=== PATIENT | female | born 2000 | race Caucasian/White ===

== ENCOUNTER 2024-07-07 14:54 | Emergency (ER) | payer OTHER, SELFPAY ==
[2024-07-07 14:57] VITALS: BP 137/98; PULSE 107; TEMP 37.1; O2SAT 98; BMI 54.9
--- NOTE | 2024-07-07 15:07 | CT_ITS ---
[address] [address] Patient Name: POORNIMA GUZMAN MRN: [id number] date: 2000 Sex: F Assigned Patient Location: ED.MAIN Current Patient Location: ED.MAIN Accession/Order Number: [id number] Exam Date: 07/07/2024 17:04 Report Date: 07/07/2024 18:56 At the request of: MIGUEL ANGEL MILIAN Procedure: CT abdomen pelvis w con EXAM: CT abdomen pelvis w con HISTORY: right lower quadrant abdominal pain COMPARISON: CT scan 09/27/2018. TECHNIQUE: CT abdomen pelvis with IV and water soluble oral contrast. IV 100 mL Omnipaque 300. 2 cups of oral contrast. Axial scans with reformatted coronal sagittal images. Individualized dose reduction used for this exam. FINDINGS: Lower chest: No acute process noted. ABDOMEN: Normal liver enhancement without focal lesion. Normal-appearing gallbladder, no biliary dilatation. Adrenal glands, pancreas, spleen unremarkable. No ascites or abdominal fluid. No or peritoneal adenopathy. Mildly prominent mesenteric lymph nodes right lower quadrant similar to previous. Normal enhancement aorta and branches and venous structures. Normal-appearing kidneys without evidence of hydronephrosis, no ureteral calculus. No bowel dilatation wall thickening or edema. Tiny appearing appendix right lower quadrant within normal limits. Moderate gas and stool throughout the colon. Moderate residual particulate matter in the stomach. Pelvis: No mass or adenopathy or free fluid. IUD in the central uterus. No adnexal pathology. Small amount of fluid in the bladder. Normal pelvic ureters. MUSCULOSKELETAL: No suspicious bone lesion. Small fat-containing periumbilical hernia. CT/CT abdomen pelvis w con IMPRESSION: 1. No Acute inflammatory process right flank right lower quadrant. Strictly unremarkable appearing gallbladder right kidney right colon and appendix. Right pelvic structures unremarkable. 2. There are several mildly prominent mesenteric lymph nodes right lower quadrant similar to previous. No increasing adenopathy. Electronically authenticated by: OZZY LUNDBERG Date: 07/07/2024 18:56
--- NOTE | 2024-07-07 15:08 | XR_ITS ---
The [address] [address] Patient Name: POORNIMA GUZMAN MRN: [id number] date: 2000 Sex: F Assigned Patient Location: ER Current Patient Location: ER Accession/Order Number: [id number] Exam Date: 07/07/2024 17:02 Report Date: 07/07/2024 18:59 At the request of: MIGUEL ANGEL MILIAN Procedure: XR chest 1V EXAM: XR chest 1V , 07/07/2024 HISTORY: abdominal pain COMPARISON: Previous x-ray from 2018. TECHNIQUE: Portable AP upright x-ray of the chest. FINDINGS: Low lung volumes. Cardiac silhouette within normal limits. No focal consolidation or pulmonary edema. Costophrenic angles appear clear. Limited evaluation due to positioning artifact. XR/XR chest 1V IMPRESSION: No acute cardiopulmonary findings. Electronically authenticated by: BRY SZYMANSKI Date: 07/07/2024 18:59
--- NOTE | 2024-07-07 15:09 | ED.GENADUL1 ---
HPI HPI - General Adult General Chief complaint: Abdominal Pain Stated complaint: ABDOMINAL PAIN Time Seen by Provider: 07/07/24 14:58 Source: patient Mode of arrival: walk-in Limitations: no limitations History of Present Illness HPI narrative: Patient is a 23-year-old female presents to the ER with concerns of right lower quadrant abdominal pain. Patient just ate prior to arrival states she was eating her breakfast. Nausea but no vomiting. Pain has been constant and daily progressively worsening over the past 3 to 4 days. She recently had her IUD changed and April. She is not sexually active. States she does have precancerous cells following a D&C with her IUD change. Patient denies any vaginal discharge or drainage. Denies dysuria. Patient notes pain currently a 6/10 uncomfortable and worse with palpation of her abdomen. She denies any prior abdominal surgeries other than IUD placement. Mother is present at bedside Quality: Reports aching Pain Consistency: Reports constant Treatments prior to arrival: Reports none Related Data Previous Rx's ?Medication ?Instructions ?Recorded dicyclomine 20 mg tablet 20 mg PO TID PRN abdominal pain #6 07/07/24 tabs ibuprofen 600 mg tablet 600 mg PO TID PRN pain #30 tabs 07/07/24 ondansetron HCl 4 mg tablet 4 mg PO Q6H PRN nausea and 07/07/24 vomiting #12 tabs Allergies Allergy/AdvReac Type Severity Reaction Status Date / Time No Known Drug Allergies Allergy Verified 07/07/24 14:57 Opioid HPI Opioid Management Most Recent Opioid Data: Last Pain Scale 6 07/07/24 18:05 Last MAR Pain Assessment 07/07/24 18:05 Review of Systems ROS Constitutional Denies: fever, chills or change in weight Eyes Denies: change in vision or blurry vision Ears, nose, mouth, and throat Denies: throat pain, neck pain or throat swelling Cardiovascular Denies: chest pain, palpitations or edema Gastrointestinal Reports: abdominal pain and nausea; Denies: vomiting Genitourinary Denies: painful urination or urinary frequency Musculoskeletal Denies: back pain or neck pain Integumentary/Breast Denies: rash Neurological Denies: headache Exam Narrative Exam Narrative: Nurses notes and vital signs reviewed and patient is not hypoxic. General: The patient appears well and in no apparent distress. Patient is resting comfortably on cart. Skin: Warm, dry, no pallor noted. Head: Normocephalic, atraumatic Neck: Supple, trachea mid-line, no tenderness, no lymphadenopathy Eye: Pupils are equal, round and reactive to light, EOMI Ears, Nose, Mouth, and Throat: TM are clear, normal light reflex, oral mucosa is moist, no posterior oropharynx erythema or hypertrophy, uvula is mid-line Cardiovascular: Regular Rate and Rhythm Respiratory: Patient is in no distress, no accessory muscle use, lungs are clear to auscultation, no wheezing, rales or rhonchi. Chest Wall: no tenderness Back: non-tender, no CVA tenderness Musculoskeletal: normal ROM, no tenderness, no swelling GI: Normal bowel sounds, tenderness noted to the right lower quadrant, guarding right lower quadrant. No rigidity. no super pubic tenderness Neurological: A&O x4 Psychiatric: Cooperative Constitutional Vital Signs, click to edit/add: Last Vital Signs Temp 98.1 F 07/07/24 18:56 Pulse 88 07/07/24 18:56 Resp 18 07/07/24 18:56 BP 124/76 07/07/24 18:56 Pulse Ox 98 07/07/24 18:56 O2 Del Method Room Air 07/07/24 18:56 Course Vital Signs Vital signs: Vital Signs Temperature 98.7 F 07/07/24 14:57 Pulse Rate 107 H 07/07/24 14:57 Respiratory Rate 18 07/07/24 14:57 Blood Pressure 137/98 H 07/07/24 14:57 Pulse Oximetry 98 07/07/24 14:57 Oxygen Delivery Method Room Air 07/07/24 14:57 Temperature 98.1 F 07/07/24 18:56 Pulse Rate 88 07/07/24 18:56 Respiratory Rate 18 07/07/24 18:56 Blood Pressure 124/76 07/07/24 18:56 Pulse Oximetry 98 07/07/24 18:56 Oxygen Delivery Method Room Air 07/07/24 18:56 Medical Decision Making MDM Narrative Medical decision making narrative: Discussed patient's presentation, will be given IV Zofran, IV morphine 4 mg and IV fluid bolus. Progressing symptoms of right lower quadrant abdominal pain over the past 4 days without relief. Rule out appendicitis. Agreeable to CT studies. Patient's urine noted for blood, lab called stating they needed more urine to run a culture. Patient's second sample was notably clear recommend they repeat the UA. Patient reevaluated, after IV Toradol, she reports feeling improved. We discussed the initial urine sample with blood in her urine, then patient admitted to having a slight discharge from her IUD insertion but now improved. Patient reports that has been normal since her IUD insertion. She also notes some cramping which may be the cause of her symptoms. She was recently placed on a muscle relaxant for low back pain. We discussed the imaging studies in her right lower quadrant where her symptoms are with no evidence of inflammation or infection. Do recommend a prompt follow-up to PCP for reevaluation. She will be given some medication at home for symptomatic treatment and may return to the ER if symptoms worsen or new symptoms develop. The patient is to followup with primary care physician in next 1-2 days or to return to the emergency department should any of the signs or symptoms worsen or new symptoms develop. Patient had questions answered. The patient agrees with the following Diagnosis and Treatment plan and the patient will be discharged home. Lab Data Lab results reviewed: Yes I reviewed the patient's lab results Labs: Lab Results 07/07/24 07/07/24 07/07/24 Range/Units 15:00 15:20 17:09 WBC 12.4 H (4.0-11.0) 10^3/uL RBC 4.63 (4.20-5.40) 10^6/uL Hgb 12.4 (12.0-16.0) g/dL Hct 39.6 (36.0-48.0) % MCV 85.5 (81.0-99.0) fL MCH 26.8 (26.7-34.0) pg MCHC 31.3 (29.9-35.2) g/dL RDW 15.4 H (11.0-15.0) % Plt Count 265 (150-450) 10^3/uL MPV 11.8 (9.5-13.5) fL Neut % (Auto) 70.2 (43.0-75.0) % Lymph % (Auto) 23.6 (20.5-60.0) % [place] % (Auto) 4.5 (1.7-12.0) % Eos % (Auto) 1.0 (0.9-7.0) % Baso % (Auto) 0.5 (0.2-2.0) % Neut # (Auto) 8.7 H (1.4-6.5) 10^3/uL Lymph # (Auto) 2.9 (1.2-3.8) 10^3/uL [place] # (Auto) 0.6 (0.3-0.8) 10^3/uL Eos # (Auto) 0.1 (0.0-0.7) 10^3/uL Baso # (Auto) 0.1 (0.0-0.1) 10^3/uL Abs Immat Gran (auto) 0.03 (0.00-0.03) 10^3/uL Imm/Tot Granulo (auto) 0.2 (0.0-0.5) % Sodium 139 (136-145) mmol/L Potassium 3.6 (3.5-5.1) mmol/L Chloride 102 (98-107) mmol/L Carbon Dioxide 28.4 (21.0-32.0) mmol/L Anion Gap 12.2 BUN 11.0 (7.0-18.0) mg/dL Creatinine 0.98 (0.55-1.02) mg/dL Est GFR ( Amer) >60 (>=60) Est GFR (Non-Af Amer) >60 (>=60) BUN/Creatinine Ratio 11.2 Glucose 113 H (74-106) mg/dL Lactate 1.0 (0.4-2.0) mmol/L Calcium 8.9 (8.5-10.1) mg/dL Total Bilirubin 0.4 (0.2-1.0) mg/dL AST 17 (15-37) U/L ALT 25 (14-59) U/L Alkaline Phosphatase 74 (46-116) U/L Total Protein 7.4 (6.4-8.2) g/dL Albumin 3.5 (3.4-5.0) g/dL Globulin 3.9 g/dL Albumin/Globulin Ratio 0.9 Lipase 23.0 (16.0-77.0) U/L Urine Color Yellow Lt. yellow (YELLOW) Urine Clarity Clear Clear (CLEAR) Urine pH 6.0 6.5 (5.0-9.0) Ur Specific [place] >=1.030 A <=1.005 A (1.005-1.025) Urine Protein Trace Negative (NEG/TRACE) mg/dL Urine Glucose (UA) Negative Negative (NEGATIVE) mg/dL Urine Ketones Negative Negative (NEGATIVE) mg/dL Urine Occult Blood Large A Moderate A (NEGATIVE) Urine Nitrite Negative Negative (NEGATIVE) Urine Bilirubin Negative Negative (NEGATIVE) Urine Urobilinogen 0.2 0.2 (0.2-1.0) EU/dL Ur Leukocyte Esterase Negative Negative (NEGATIVE) Urine RBC 75-100 A 0-2 (0-2) #/HPF Urine WBC 0-2 A 0-2 A (NONE SEEN) #/HPF Ur Squamous Epith Cells Moderate A None seen (NONE/RARE) #/LPF Urine Crystals None seen None seen (None Seen) #/HPF Urine Bacteria Small A None seen (NONE SEEN) #/HPF Urine Casts None seen None seen (NONE SEEN) #/LPF Urine Mucus Small A None seen (NONE SEEN) Ur Culture Indicated? Yes No Urine HCG, Qual Negative (NEGATIVE) Imaging Data CT scan - abdomen: Radiologist's impression: ITS Impressions Abdomen/Pelvis CT 07/07/24 15:07 IMPRESSION: 1. No Acute inflammatory process right flank right lower quadrant. Strictly unremarkable appearing gallbladder right kidney right colon and appendix. Right pelvic structures unremarkable. 2. There are several mildly prominent mesenteric lymph nodes right lower quadrant similar to previous. No increasing adenopathy. Electronically authenticated by: OZZY LUNDBERG Date: 07/07/2024 18:56 Chest X-Ray 07/07/24 15:08 IMPRESSION: No acute cardiopulmonary findings. Electronically authenticated by: BRY SZYMANSKI Date: 07/07/2024 18:59 Discharge Plan Discharge Stand Alone Forms: Work/School Release, Portal Instructions Chief Complaint: Abdominal Pain Clinical Impression: Abdominal pain, right lower quadrant Patient Disposition: Home, Self-Care Time of Disposition Decision: 19:18 Condition: Good Mode of Transportation: Private Vehicle Prescriptions / Home Meds: New ondansetron HCl 4 mg tablet 4 mg PO Q6H PRN (Reason: nausea and vomiting) Qty: 12 0RF ibuprofen 600 mg tablet 600 mg PO TID PRN (Reason: pain) Qty: 30 0RF dicyclomine 20 mg tablet 20 mg PO TID PRN (Reason: abdominal pain) Qty: 6 0RF Print Language: Romansh Instructions: Abdominal Pain (ED) Additional Instructions: Contact your family doctor for follow up in 1-2 days for re-evaluation Referrals: Physician,Non-Staff, MD [Primary Care Provider] - 1 week AMARIS ORELLANA [Nurse Practitioner] - As soon as possible
[2024-07-07 15:27] LABS: Basophils Absolute Auto 0.1 10^3/uL (0.0-0.1); Basophils Percent Auto 0.5 % (0.2-2.0); Eosinophils Absolute Auto 0.1 10^3/uL (0.0-0.7); Hematocrit 39.6 % (36.0-48.0); Hemoglobin 12.4 g/dL (12.0-16.0); Immature Granulocytes Abs Auto 0.03 10^3/uL (0.00-0.03); Immature Granulocytes Pct Auto 0.2 % (0.0-0.5); Lymphocytes Absolute Auto 2.9 10^3/uL (1.2-3.8); Lymphocytes Percent Auto 23.6 % (20.5-60.0); Mean Corpuscular HGB Conc 31.3 g/dL (29.9-35.2); Mean Corpuscular Hemoglobin 26.8 pg (26.7-34.0); Mean Corpuscular Volume 85.5 fL (81.0-99.0); Mean Platelet Volume 11.8 fL (9.5-13.5); Monocytes Absolute Auto 0.6 10^3/uL (0.3-0.8); Monocytes Percent Auto 4.5 % (1.7-12.0); Neutrophils Absolute Auto 8.7 10^3/uL (1.4-6.5); Neutrophils Percent Auto 70.2 % (43.0-75.0); Platelet Count 265 10^3/uL (150-450); Red Blood Count 4.63 10^6/uL (4.20-5.40); Red Cell Distribution Width 15.4 % (11.0-15.0); White Blood Count 12.4 10^3/uL (4.0-11.0)
[2024-07-07 15:30] LABS: Bilirubin Urine NEGATIVE (NEGATIVE); Blood Urine LARGE (NEGATIVE); Clarity Urine CLEAR (CLEAR); Color Urine YELLOW (YELLOW); Glucose Urine UA NEGATIVE (NEGATIVE); Ketones Urine NEGATIVE (NEGATIVE); Leukocyte Esterase Urine NEGATIVE (NEGATIVE); Nitrite Urine NEGATIVE (NEGATIVE); Protein Urine TRACE mg/dL (NEG/TRACE); Specific Gravity Urine >=1.030 (1.005-1.025); Urine Microscopic Indicated YES; Urobilinogen Urine 0.2 EU/dL (0.2-1.0)
[2024-07-07 15:40] LABS: Bacteria Urine SMALL #/HPF (NONE SEEN); Cast Seen? NONE SEEN #/LPF (NONE SEEN); Crystals Seen? None Seen #/HPF (None Seen); HCG Qualitative Urine* NEGATIVE (NEGATIVE); Internal Control Within Normal Limits; Mucus Urine SMALL (NONE SEEN); RBC Urine 75-100 #/HPF (0-2); Squamous Epithelial Cell Urine MODERATE #/LPF (NONE/RARE); WBC Urine 0-2 #/HPF (NONE SEEN)
[2024-07-07 15:41] LABS: Urine Culture Indicated YES
[2024-07-07] MEDS: 0.9 % SODIUM CHLORIDE 1,000 ML 999 ML IV (15:46)
[2024-07-07 15:47] LABS: Alanine Aminotransferase 25 U/L (14-59); Albumin Globulin Ratio 0.9; Albumin Level 3.5 g/dL (3.4-5.0); Alkaline Phosphatase 74 U/L (46-116); Anion Gap 12.2; Aspartate Amino Transferase 17 U/L (15-37); BUN Creatinine Ratio 11.2; Bilirubin Total 0.4 mg/dL (0.2-1.0); Calcium 8.9 mg/dL (8.5-10.1); Carbon Dioxide 28.4 mmol/L (21.0-32.0); Chloride 102 mmol/L (98-107); Estimated GFR (African America >60 (>=60); Estimated GFR (Non-African Ame >60 (>=60); Globulin 3.9 g/dL; Glucose 113 mg/dL (74-106); Potassium 3.6 mmol/L (3.5-5.1); Sodium 139 mmol/L (136-145); Total Protein 7.4 g/dL (6.4-8.2)
[2024-07-07] MEDS: ONDANSETRON PF 4 MG/2 ML VIAL IV (15:47)
[2024-07-07] MEDS: MORPHINE SULFATE 2 MG/ML SYRINGE 4 MG IV (15:47)
[2024-07-07 17:15] LABS: Bilirubin Urine NEGATIVE (NEGATIVE); Blood Urine MODERATE (NEGATIVE); Clarity Urine CLEAR (CLEAR); Color Urine LT. YELLOW (YELLOW); Glucose Urine UA NEGATIVE (NEGATIVE); Ketones Urine NEGATIVE (NEGATIVE); Leukocyte Esterase Urine NEGATIVE (NEGATIVE); Nitrite Urine NEGATIVE (NEGATIVE); Protein Urine NEGATIVE (NEG/TRACE); Specific Gravity Urine <=1.005 (1.005-1.025); Urobilinogen Urine 0.2 EU/dL (0.2-1.0); pH Urine 6.5 (5.0-9.0)
[2024-07-07 17:19] LABS: Urine Microscopic Indicated YES
[2024-07-07 17:31] LABS: Bacteria Urine NONE SEEN #/HPF (NONE SEEN); Cast Seen? NONE SEEN #/LPF (NONE SEEN); Crystals Seen? None Seen #/HPF (None Seen); Mucus Urine NONE SEEN (NONE SEEN); RBC Urine 0-2 #/HPF (0-2); Squamous Epithelial Cell Urine NONE SEEN #/LPF (NONE/RARE); Urine Culture Indicated NO; WBC Urine 0-2 #/HPF (NONE SEEN)
[2024-07-07] MEDS: KETOROLAC TROMETHAMINE 30 MG/ML VIAL IVP (18:05)
[2024-07-07 18:56] VITALS: BP 124/76; PULSE 88; TEMP 36.7; O2SAT 98
== END 2024-07-07 19:50 | disposition home or self-care (01) ==
PROVIDERS: Personal Emergency Response Attendant; Emergency Provider Emergency Medicine Emergency Medical Services
DX: R10.31 Right lower quadrant pain (principal); Z97.5 Presence of (intrauterine) contraceptive device
CPT/HCPCS: 36415; 71045; 74177; 80053; 81001; 83605; 83690; 84703; 85025; 87086; 96374; 96375; 99285; J1885; J2270; J2405; Q9967